=== PATIENT | male | born 1970 | race African-American/Black ===

== ENCOUNTER 2018-04-22 19:32 | Emergency (ER) | payer MEDICAID, MEDICARE, OTHER ==
[~2018-04-22] VITALS: Ht 172.7 cm; Wt 77.1 kg
--- NOTE | 2018-04-22 19:50 | NUR ---
ED Nurse Note: Patient came to ED c/o of generalized back pain for 20 years
[2018-04-22 20:00] VITALS: BP 131/76
--- NOTE | 2018-04-22 20:16 | Emergency Room Report ---
History of Present Illness General Chief Complaint: General Complaint Source: Patient Present Illness HPI Pt. reports generalized 10/10 in severity pain and body aches x 20 years. he states he also notices SOB when it is cold out and attributes change of weather to exacerbating his symptoms. pt. reports hx of chronic constipation and takes milk of magnesia. Pt. denies cardiac hx. he reports that he also has had a cough , and feels weak. denies night sweats or significant changes in weight. Denies CP, Palpitations, LOC, AMS, dizziness, Changes in Vision, Sensation, paresthesias, or a sudden severe headache. Reports last Bm was today. Allergies: Coded Allergies: No Known Allergies (Verified Allergy, Unknown, 12/16/08) Patient History Past Medical History: see triage record Past Surgical History: none Pertinent Family History: none Reviewed Nursing Documentation: PMH: Agreed; PSxH: Agreed Nursing Documentation-PMH Past Medical History: No Stated History Review of Systems All Other Systems: negative except mentioned in HPI Physical Exam Vital Signs Date Time Temp Pulse Resp B/P (MAP) Pulse Ox O2 Delivery O2 Flow Rate FiO2 04/22/18 19:46 98.2 99 12 131/76 100 Room Air Medical Decision Making PA Attestation Dr. Baer is my supervising Physician whom patient management has been discussed with. Diagnostic Impression: Primary Impression: Chronic pain Qualified Codes: G89.29 - Other chronic pain Additional Impressions: Mild anemia History of chronic constipation ER Course Pt. reports generalized 10/10 in severity pain and body aches x 20 years. he states he also notices SOB when it is cold out and attributes change of weather to exacerbating his symptoms. pt. reports hx of chronic constipation and takes milk of magnesia. Pt. denies cardiac hx. he reports that he also has had a cough , and feels weak. denies night sweats or significant changes in weight. Denies CP, Palpitations, LOC, AMS, dizziness, Changes in Vision, Sensation, paresthesias, or a sudden severe headache. Reports last Bm was today. Ddx considered but are not limited to CT, PE, atelectasis, CHF, asthma, anxiety , hyper-ventilation syndrome, pneumonia, costochondritis, chest wall pain, No acute pulmonary or cardiac causes at this time patient is in no acute distress her oxygen saturation is within normal limits, patient is not in any respiratory distress at this time Vital signs: are WNL, pt. is afebrile H&PE are most consistent with . ORDERS: -EKG: NSR 92 beats per minute, no acute ST changes - CBC: mild anemia otherwise unremarkable -BMP: unremarkable -CK: WNL- Ck very mildly elevated - pt. given NS bolus -Troponin: WNL CXR: unremarkable other than chronic rib fractures. ED INTERVENTIONS: -NS Bolus -Lactulose PO DISCHARGE: At this time pt. is stable for d/c to home. Will provide printed patient care instructions, and any necessary prescriptions. Care plan and follow up instructions have been discussed with the patient prior to discharge. Labs Test 04/22/18 20:50 White Blood Count 4.9 K/UL (4.8-10.8) Red Blood Count 4.06 M/UL (4.70-6.10) Hemoglobin 11.9 G/DL (14.2-18.0) Hematocrit 36.3 % (42.0-52.0) Mean Corpuscular Volume 89 FL (80-99) Mean Corpuscular Hemoglobin 29.3 PG (27.0-31.0) Mean Corpuscular Hemoglobin Concent 32.8 G/DL (32.0-36.0) Red Cell Distribution Width 12.1 % (11.6-14.8) Platelet Count 166 K/UL (150-450) Mean Platelet Volume 8.4 FL (6.5-10.1) Neutrophils (%) (Auto) 79.2 % (45.0-75.0) Lymphocytes (%) (Auto) 8.3 % (20.0-45.0) Monocytes (%) (Auto) 11.9 % (1.0-10.0) Eosinophils (%) (Auto) 0.0 % (0.0-3.0) Basophils (%) (Auto) 0.6 % (0.0-2.0) Sodium Level 142 MMOL/L (136-145) Potassium Level 3.6 MMOL/L (3.5-5.1) Chloride Level 105 MMOL/L (98-107) Carbon Dioxide Level 28 MMOL/L (21-32) Anion Gap 9 mmol/L (5-15) Blood Urea Nitrogen 25 mg/dL (7-18) Creatinine 1.3 MG/DL (0.55-1.30) Estimat Glomerular Filtration Rate > 60 mL/min (>60) Glucose Level 103 MG/DL (74-106) Calcium Level 8.9 MG/DL (8.5-10.1) Total Creatine Kinase 413 U/L (26-308) Troponin I 0.014 ng/mL (0.000-0.056) EKG Diagnostic Results EP Interpretation: Dr. Baer Rate: normal Rhythm: NSR ST Segments: no acute changes ASA given to the pt in ED: No PA Scribe Text This Interpretation was scribed by ATIF Muñoz. Chest X-Ray Diagnostic Results Chest X-Ray Diagnostic Results : Chest X-Ray Ordered: Yes # of Views/Limited/Complete: 1 View Indication: Shortness of Breath EP Interpretation: Yes ATIF Xray: Interpretation reviewed, by supervising MD, and agrees with findings. Interpretation: no consolidation, no effusion, no pneumothorax, no acute cardiopulmonary disease Impression: No acute disease Electronically Signed by: Noni Muñoz PA-C Last Vital Signs Date Time Temp Pulse Resp B/P (MAP) Pulse Ox O2 Delivery O2 Flow Rate FiO2 04/22/18 19:46 98.2 99 12 131/76 100 Room Air Disposition: HOME, SELF-CARE Condition: Stable Scripts Lactulose (LACTULOSE*) 20 Gm/30 Ml Solution 30 ML ORAL DAILY, #120 ML 0 Refills Prov: Noni Muñoz 04/22/18 Iron,Carbonyl/Ascorbic Acid (IRON 100-VITAMIN C TABLET) 1 Each Tablet 1 EACH PO BID, #30 TAB Prov: Noni Muñoz 04/22/18 Patient Instructions: Constipation, Adult, [id number], Medical Screening Exam Additional Instructions: Take medications as directed. Follow up with a Primary Care Provider in 3-5 days, even if your symptoms have resolved. --Please review list of primary care clinics, if you do not already have a primary care provider Return sooner to ED if new symptoms occur, or current symptoms become worse. - Please note that this Emergency Department Report was dictated using TE2bait painter technology software, occasionally this can lead to erroneous entry secondary to interpretation by the dictation equipment. Noni Muñoz Apr 22, 2018 20:16
[2018-04-22 21:24] LABS: ANION GAP 9 mmol/L (5-15); BLOOD UREA NITROGEN 25 mg/dL (7-18); CALCIUM 8.9 MG/DL (8.5-10.1); CARBON DIOXIDE 28 MMOL/L (21-32); CHLORIDE 105 MMOL/L (98-107); CREATININE 1.3 MG/DL (0.55-1.30); POTASSIUM 3.6 MMOL/L (3.5-5.1); SODIUM 142 MMOL/L (136-145)
[2018-04-22 21:33] LABS: CREATINE KINASE 413 U/L (26-308)
[2018-04-22 21:34] LABS: BASOPHILS % (AUTO) 0.6 % (0.0-2.0); HEMATOCRIT 36.3 % (42.0-52.0); HEMOGLOBIN 11.9 G/DL (14.2-18.0); LYMPHOCYTES % (AUTO) 8.3 % (20.0-45.0); MEAN CORPUSCULAR VOLUME 89 FL (80-99); MONOCYTES % (AUTO) 11.9 % (1.0-10.0); NEUTROPHILS % (AUTO) 79.2 % (45.0-75.0); PLATELET COUNT 166 K/UL (150-450); RED BLOOD COUNT 4.06 M/UL (4.70-6.10); RED CELL DISTRIBUTION WIDTH 12.1 % (11.6-14.8); WHITE BLOOD COUNT 4.9 K/UL (4.8-10.8)
[2018-04-22] MEDS ORDERED: Lactulose 20gm/30ml UDC ORAL ONE (22:30)
[2018-04-22] MEDS ORDERED: IRON 100-VITAM1 EACH PO (22:40)
[2018-04-22] MEDS ORDERED: LACTULOSE20 GM/301 ORAL (22:40)
[2018-04-22 23:15] VITALS: BP 127/72
--- NOTE | 2018-04-22 23:15 | NUR ---
ED Nurse Note: Pt cleared DC by ATIF Cheney. Pt is A/Ox4, VSS, DC instruction and prescriptions given, pt verbalized understanding. ID wristband removed. All belongings given to pt. Pt ambulated out of ER with steady gait.
== END 2018-04-22 23:15 | disposition home or self-care (01) ==
LOC: EMR 21:40
DX: G89.29 Other chronic pain (principal); R52 Pain, unspecified; D64.9 Anemia, unspecified; K59.09 Other constipation
CPT/HCPCS: 36415; 71045; 80048; 82550; 84484; 85025; 93005; 99284

== ENCOUNTER 2019-02-19 15:46 | Emergency (ER) | payer MEDICARE ==
[~2019-02-19] VITALS: Ht 175.3 cm; Wt 56.7 kg
[~2019-02-19 15:46] MED LIST: IRON 100-VITAM1 EACH PO; LACTULOSE20 GM/301 ORAL
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
[2019-02-19 16:15] VITALS: BP 104/68
[2019-02-19] MEDS ORDERED: Acetaminophen 500mg (ES) tab ORAL ONE (16:15)
[2019-02-19] MEDS ORDERED: Methocarbamol 750mg tab ORAL ONE (16:15)
--- NOTE | 2019-02-19 16:17 | NUR ---
ED Nurse Note: Patient going to CT
--- NOTE | 2019-02-19 16:25 | NUR ---
ED Nurse Note: Patient back from CT
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
[2019-02-19] MEDS ORDERED: IBUPROFEN600 MG ORAL (17:24)
[2019-02-19] MEDS ORDERED: ACETAMINOPHEN325 M1 ORAL (17:24)
[2019-02-19 18:15] VITALS: BP 103/68
--- NOTE | 2019-02-19 18:15 | NUR ---
ED Nurse Note: Pt cleared by health care Provider for discharge. DC instructions/prescription was given and explained to pt and verbalized understanding of teachings. All medical devices such as ID band removed. Pt is AAO x4, ambulatory and left with all personal belongings.
== END 2019-02-19 18:15 | disposition home or self-care (01) ==
LOC: EDUNIT# 15:46 → EDBD 15:46 → EMR 17:18
DX: S00.93XA Contusion of unspecified part of head, initial encounter (principal); Y04.2XXA Assault by strike against or bumped into by another person, initial encounter; Y93.9 Activity, unspecified; Y92.9 Unspecified place or not applicable; Z98.1 Arthrodesis status
CPT/HCPCS: 70450; 72125; 99284

== ENCOUNTER 2019-09-05 04:31 | Emergency (ER) | payer MEDICARE ==
[~2019-09-05] VITALS: Ht 172.7 cm; Wt 59.0 kg
[~2019-09-05 04:31] MED LIST changes: +ACETAMINOPHEN325 M1 ORAL; +IBUPROFEN600 MG ORAL
[2019-09-05 04:41] VITALS: BP 143/87
[2019-09-05] MEDS ORDERED: Ketorolac 30mg Inj IV ONE (04:45)
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
[2019-09-05 05:32] LABS: BASOPHILS % (AUTO) 1.7 % (0.0-2.0); HEMATOCRIT 39.7 % (42.0-52.0); HEMOGLOBIN 13.2 G/DL (14.2-18.0); LYMPHOCYTES % (AUTO) 17.4 % (20.0-45.0); MEAN CORPUSCULAR VOLUME 90 FL (80-99); MONOCYTES % (AUTO) 7.8 % (1.0-10.0); NEUTROPHILS % (AUTO) 72.1 % (45.0-75.0); PLATELET COUNT 267 K/UL (150-450); RED CELL DISTRIBUTION WIDTH 11.3 % (11.6-14.8); WHITE BLOOD COUNT 7.2 K/UL (4.8-10.8)
[2019-09-05 05:44] LABS: ANION GAP 10 mmol/L (5-15); BLOOD UREA NITROGEN 24 mg/dL (7-18); CALCIUM 9.1 MG/DL (8.5-10.1); CARBON DIOXIDE 27 MMOL/L (21-32); CHLORIDE 103 MMOL/L (98-107); CREATININE 1.1 MG/DL (0.55-1.30); POTASSIUM 3.9 MMOL/L (3.5-5.1); SODIUM 140 MMOL/L (136-145)
[2019-09-05 05:50] LABS: ALANINE AMINOTRANSFERASE 35 U/L (12-78); ALBUMIN 3.9 G/DL (3.4-5.0); ALBUMIN/GLOBULIN RATIO 1.1 (1.0-2.7); ALKALINE PHOSPHATASE 58 U/L (46-116); ASPARTATE AMINO TRANSFERASE 35 U/L (15-37); BILIRUBIN,TOTAL 0.4 MG/DL (0.2-1.0); CREATINE KINASE 497 U/L (26-308)
[2019-09-05] MEDS ORDERED: TYLENOL325 MG ORAL (06:16)
[2019-09-05] MEDS ORDERED: LACTULOSE20 GM/301 ORAL (06:16)
[2019-09-05 06:44] VITALS: BP 104/64
[2019-09-05 07:49] LABS: APPEARANCE,URINE CLEAR; BILIRUBIN, URINE NEGATIVE (NEGATIVE); COLOR,URINE PALE YELLOW; GLUCOSE, URINE (UA) NEGATIVE (NEGATIVE); KETONES,URINE 1+ (NEGATIVE); LEUKOCYTE ESTERASE ,URINE NEGATIVE (NEGATIVE); NITRITE,URINE NEGATIVE (NEGATIVE); PH,URINE 5 (4.5-8.0); PROTEIN,URINE NEGATIVE (NEGATIVE); UROBILINOGEN,URINE NORMAL MG/DL (0.0-1.0)
[2019-09-05 08:45] VITALS: BP 104/64
--- NOTE | 2019-09-05 09:16 | Diagnostic Imaging Report ---
EXAM: XRAY Abdomen 1v HISTORY: Reason For Exam: ABD PAIN COMPARISON: None. TECHNIQUE: Frontal view of the abdomen obtained. FINDINGS: There is a nonobstructed bowel gas pattern. Increased stool lucencies noted throughout the colon. No definite pathologic calcifications identified. There is no sign of free air. Broad curvature of the thoracolumbar spine noted either scoliosis or positioning. IMPRESSION: INCREASED STOOL LUCENCIES THROUGHOUT THE COLON.
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
== END 2019-09-05 08:43 | disposition home or self-care (01) ==
LOC: EDBD 04:31 → EMR 04:55
DX: K59.00 Constipation, unspecified (principal); F17.200 Nicotine dependence, unspecified, uncomplicated; R11.0 Nausea
CPT/HCPCS: 36415; 71045; 74018; 80053; 80307; 81003; 82550; 83690; 85025; 85610; 85730; 96361; 96374; 96375; 99284; J1885; J2405; J7030; S0028